=== PATIENT | female | born 2000 | race Caucasian/White ===

== ENCOUNTER 2021-01-20 08:31 | Emergency (ER) | payer BC, SELFPAY ==
[2021-01-20 08:53] VITALS: BP 114/66; PULSE 71; RESP 16; TEMP 36.9; O2SAT 100
--- NOTE | 2021-01-20 09:18 | ED.GENADULT ---
HPI - General Adult General Chief complaint: Ear Stated complaint: nausea/ear pressure/fatigue/head pressure Time Seen by Provider: 01/20/21 09:05 Source: patient and RN notes reviewed Mode of arrival: ambulatory Limitations: no limitations History of Present Illness HPI narrative: Patient presents today with a 2-day history of bilateral ear pressure, nausea, chills and sweats. Denies cough, sore throat, congestion, rhinorrhea, vomiting, diarrhea, or any urinary symptoms. Denies sick contacts. She took 1 dose of Tylenol PM last night, which did provide some relief. States she should be starting her menstrual cycle in the next day. MD complaint: Ear pressure, nausea Related Data Home Medications Medication Instructions Recorded Confirmed norgestimate-ethinyl estradiol 1 tablet PO DAILY 10/07/19 12/19/20 [Sprintec (28)] Allergies Allergy/AdvReac Type Severity Reaction Status Date / Time No Known Allergies Allergy Unknown Verified 01/20/21 08:40 Review of Systems Review of Systems: Narrative: CONSTITUTIONAL: Denies body aches, fever. + Chills, sweats EYES: Denies visual changes, redness, or discharge. ENT: Denies rhinorrhea, congestion, sore throat, or otalgia.+ Bilateral ear pressure CARDIOVASCULAR: Denies chest pain, palpitations, or edema. RESPIRATORY: Denies cough or dyspnea. GASTROINTESTINAL: Denies abdominal pain, vomiting, or diarrhea. + Nausea GENITOURINARY: Denies dysuria or hematuria. SKIN: Denies rash, itching, or wounds. MUSCULOSKELETAL: Denies back pain, joint pain, or myalgia. NEUROLOGIC: Denies headache, numbness, tingling, or weakness. PSYCH: Denies depression or anxiety. [facility] Past Medical History Medical History Anxiety Depression Uterine adhesion (~12/2019) Family History Family History Other Hypertension Social History Social History Smoking status: Never smoker Second hand tobacco smoke exposure: No Comments At time of signature, I have reviewed and agree with nursing past medical, surgical, social and family history unless otherwise noted. Please see nursing chart for further information. There is no relevant family history pertinent to the presenting complaint Exam Narrative: Exam Narrative: GENERAL: Well-appearing, well-nourished, and in no acute distress. HEAD: Normocephalic, atraumatic. EYES: EOMI. No redness or drainage. Conjunctivae normal. ENT: Mucous membranes pink and moist. Nares clear. No rhinorrhea. TMs normal bilaterally. Throat normal. Uvula midline. NECK: Normal AROM. Supple. No lymphadenopathy. CHEST: No respiratory distress. Clear to auscultation. HEART: Regular rate and rhythm. No murmur appreciated. Normal peripheral pulses. EXTREMITIES: Normal range of motion. No edema. SKIN: Warm, dry, no rash. Capillary refill normal. Normal skin turgor. NEURO: No focal deficits. Alert and oriented x3. Gait steady. PSYCH: Normal affect. No signs of depression or anxiety. Course Vital Signs Vital signs: Vital Signs Temperature 98.4 F 01/20/21 08:53 Pulse Rate 71 01/20/21 08:53 Respiratory Rate 16 01/20/21 08:53 Blood Pressure 114/66 01/20/21 08:53 Pulse Oximetry 100 01/20/21 08:53 Temperature 98.4 F 01/20/21 08:53 Pulse Rate 71 01/20/21 08:53 Respiratory Rate 16 01/20/21 08:53 Blood Pressure 114/66 01/20/21 08:53 Pulse Oximetry 100 01/20/21 08:53 Reviewed Medical Decision Making Differential Diagnosis Differential Diagnosis: Viral syndrome, URI, otitis media, otitis externa, ruptured TM, serous otitis, eustachian tube dysfunction, UTI Vital Signs Vital Signs: Vital Signs Temperature 98.4 F 01/20/21 08:53 Pulse Rate 71 01/20/21 08:53 Respiratory Rate 16 01/20/21 08:53 Blood Pressure 114/66 01/20/21 08:53 Pulse Oxim
== END 2021-01-20 09:28 | disposition home or self-care (01) ==
PROVIDERS: Emergency Provider Nurse Practitioner
DX: B34.9 Viral infection, unspecified (principal)
CPT/HCPCS: 81003; 99212; G0463

== ENCOUNTER 2021-03-03 18:38 | Emergency (ER) | payer BC, SELFPAY ==
[2021-03-03 18:44] VITALS: BP 112/60; PULSE 75; RESP 18; TEMP 37.2; O2SAT 100
--- NOTE | 2021-03-03 19:05 | ED.ABDPAIN ---
HPI - Abdominal Pain General Chief Complaint: Abdominal Pain Stated Complaint: lower abd pain Time Seen by Provider: 03/03/21 19:05 Source: patient and RN notes reviewed Mode of arrival: ambulatory Limitations: no limitations History of Present Illness HPI narrative: 20 year old female who presents to [facility] with complaints of having to leave work today at 4 pm when she was doubled over in pain to the left side of her abdomen. Patient states that her pain is sharp to her left abdomen and she also is experiencing some left flank discomfort with tenderness on examination. Patient denies any burning or pain with urination, denies any perineal discomfort or any foul odor of urine, denies any nausea or vomiting diarrhea or any recent constipation. MD elicited complaint: abdominal pain and flank pain Pertinent past history: other (ovarian cyst uterine polyps) Onset (ago): hour(s) (3) Pain Consistency: constant Location: LLQ and L flank Severity: severe Pain scale (0-10): 7 Quality: sharp Radiation: L flank Relieving factors: nothing Associated symptoms: denies other symptoms Related Data Home Medications Medication Instructions Recorded Confirmed norgestimate-ethinyl estradiol 1 tablet PO DAILY 10/07/19 03/03/21 [Sprintec (28)] Allergies Allergy/AdvReac Type Severity Reaction Status Date / Time No Known Allergies Allergy Unknown Verified 03/03/21 21:00 Review of Systems Review of Systems: Narrative: CONSTITUTIONAL: Denies fever, chills, or sweats. EYES: Denies visual changes, redness, or discharge. ENT: Denies rhinorrhea, congestion, sore throat, or otalgia. CARDIOVASCULAR: Denies any chest pain, palpitations, or edema. RESPIRATORY: Denies cough or dyspnea GASTROINTESTINAL:Positive for left lower abdominal pain,no nausea, vomiting, or diarrhea.denies any constipation GENITOURINARY: Denies dysuria or hematuria. SKIN: Denies rash or itching. MUSCULOSKELETAL:Positive for left flank area back pain, no joint pain, or myalgia. NEUROLOGIC: Denies headache, numbness, or weakness.. PSYCHIATRIC: Positive history of anxiety or depression. All systems reviewed & are unremarkable except as noted in HPI and below PMFSH Past Medical History Medical History Anxiety Depression Uterine adhesion (~12/2019) Family History Family History (Updated 03/03/21 @ 19:33 by Eun Rai NP) Mother Kidney stones Hypertension Heart disease Father Hypertension Heart disease Social History Social History (Updated 03/03/21 @ 19:34 by Eun Rai NP) Smoking status: Never smoker Second hand tobacco smoke exposure: No Alcohol intake: current Substance use: current Substance use type: marijuana Last use: 1-2 times per week Gender identity (if verbalized by the patient): Female Comments At time of signature, agree with nursing past medical, surgical, social and family history. There is no relevant family history pertinent to the presenting complaint Exam Narrative: Exam Narrative: GENERAL: Well-appearing, well-nourished, and in no acute distress. HEAD: Normocephalic, atraumatic. EYES: PERRLA and EOMI. ENT: Nares clear, no rhinorrhea or epistaxis. Mucous membranes moist. NECK: Supple.no lymphadenopathy CHEST: Clear to auscultation. No respiratory distress.SAO2 100% on room air HEART: Regular rate and rhythm. No murmur heard. Normal peripheral pulses. ABDOMEN: Soft, tender to left lower abdomen nondistended, normal active bowel sounds.CVA tenderness to left flank area on examination. EXTREMITIES: Normal range of motion. No edema. SKIN: Warm, dry, no rash. NEURO: No focal deficits. Alert and oriented x3. Course Vital Signs Vital signs: Vital Signs Temperature 37.2 C 03/03/21 18:44 Pulse Rate 75 03/03/21 18:44 Respiratory Rate 18 03/03/21 18:44 Blood Pressure 112/60 03/03/21 18:44 Pulse Oximetry 100 03/03/21 18:44 Tem
== END 2021-03-03 19:20 | disposition short-term general hospital (02) ==
PROVIDERS: Emergency Provider Registered Nurse
DX: R10.32 Left lower quadrant pain (principal)
CPT/HCPCS: 81003; 99212; G0463

== ENCOUNTER 2021-03-03 20:13 | Emergency (ER) | payer BC, SELFPAY ==
--- NOTE | ~2021-03-03 | CT_ITS ---
EXAMINATION: CT abdomen pelvis w con DATE: 03/03/2021 22:03 INDICATION: Low abdominal pain. TECHNIQUE: Computed tomography (CT) of the abdomen and pelvis was performed with 100 mL Omnipaque 350 intravenous contrast. Automated exposure control and iterative reconstruction technique were employe d. The dose-length product was 228.96 mGy-cm. COMPARISON: None. FINDINGS: The visualized portions of the lung bases are clear without pneumonia or pleural effusion. The heart size is normal. No pericardial effusion. The liver, gallbladder, spleen, pancreas, adrenal glands, and kidneys are normal. There are no dilated loops of bowel. The appendix is normal. There ar e no pathologically enlarged lymph nodes. There is trace pelvic ascites. The bones are unremarkable. IMPRESSION: 1. No etiology for the patient's symptoms. Reviewed, dictated and finalized at location A.
[2021-03-03 20:20] VITALS: BP 115/67; PULSE 85; RESP 18; TEMP 36.8; O2SAT 100
[2021-03-03 20:34] LABS: Basophils Absolute Auto 0.1 K/mm3 (0.0-0.1); Basophils Percent Auto 0.6 % (0.2-1.2); Eosinophils Absolute Auto 0.1 K/mm3 (0-0.3); Eosinophils Percent Auto 0.9 % (0-4.4); Hematocrit 38.1 % (37.0-47.0); Hemoglobin 12.8 g/dL (12.0-15.0); Immature Granulocyte Absolute 0.04 K/mm3 (0.00-0.031); Immature Granulocyte Percent A 0.4 % (0-0.5); Lymphocytes Absolute Auto 3.92 K/mm3 (0.9-3.2); Lymphocytes Percent Auto 37.3 % (18.3-44.2); Mean Corpuscular HGB Conc 33.6 g/dl (32-36); Mean Corpuscular Hemoglobin 28.9 pg (26-34); Mean Platelet Volume 9.6 fl (7.4-10.4); Monocytes Absolute Auto 0.6 K/mm3 (0.1-0.6); Monocytes Percent Auto 6.1 % (2.6-8.5); Neutrophils Absolute Auto 5.8 K/mm3 (1.3-6.7); Neutrophils Percent Auto 54.7 % (45.5-73.1); Platelet Count Result 324 k/mm3 (150-375); Red Blood Count 4.43 M/mm3 (4.2-5.4); White Blood Count 10.5 K/mm3 (4.5-10.0)
[2021-03-03 20:52] LABS: Add Urine Microscopic? YES; Appearance Urine Cloudy (Clear); Bilirubin Urine Negative (Negative); Blood Urine Negative (Negative); Color Urine Yellow (Yellow); Glucose Urine UA Negative (Negative); Ketones Urine Trace mg/dL (Negative); Leukocyte Esterase Ur 1+ LEU/UL (Negative); Mucus Urine Few /lpf; Nitrate Urine Negative (Negative); Protein Urine 1+ mg/dL (Negative); RBC Urine 0-2 /hpf (0-2); Specific Grav Ur 1.023 (1.001-1.035); Squamous Epithelial Cell Urine Many /hpf (Few); Urobilinogen Urine Negative mg/dL (<2.0)
[2021-03-03 20:57] LABS: Alanine Aminotransferase 13 U/L (4-35); Albumin Level 4.4 g/dL (3.7-5.6); Alkaline Phosphatase 42 U/L (45-116); Anion Gap 8 mmol/L (8-16); Aspartate Amino Transferase 32 U/L (14-36); Bilirubin,Total 0.3 mg/dL (0.2-1.3); Blood Urea Nitrogen 13 mg/dL (8-21); Calcium 9.8 mg/dL (8.9-10.7); Carbon Dioxide 25 mmol/L (22-30); Chloride 107 mmol/L (98-107); Estimated CRCL calculation 120 ml/min; Estimated Glomerular Filt Rate > 60; Glucose 90 mg/dL (65-105); Lipase 45 U/L (23-300); Potassium 3.9 mmol/L (3.4-5.0); Sodium 140 mmol/L (134-143)
--- NOTE | 2021-03-03 21:18 | ED.ABDPAIN ---
HPI - Abdominal Pain General Chief Complaint: Abdominal Pain Stated Complaint: abdominal pain, sent from [facility]. Time Seen by Provider: 03/03/21 20:58 Source: patient Mode of arrival: ambulatory Limitations: no limitations History of Present Illness HPI narrative: This is a 20 year old female that presents to the ER for low abdominal pain since this morning. Reports the pain is sharp and intermittent in nature. Associated with some hematuria. Denies fever, vomiting, or dysuria. Related Data Home Medications Medication Instructions Recorded Confirmed norgestimate-ethinyl estradiol 1 tablet PO DAILY 10/07/19 03/03/21 [Sprintec (28)] Allergies Allergy/AdvReac Type Severity Reaction Status Date / Time No Known Allergies Allergy Unknown Verified 03/03/21 21:00 Review of Systems Review of Systems: Narrative: CONSTITUTIONAL: Denies fever GASTROINTESTINAL: Reports abdominal pain. Denies nausea, vomiting, or diarrhea. GENITOURINARY: Reports hematuria. Denies dysuria All systems reviewed & are unremarkable except as noted in HPI and below PMFSH Past Medical History Medical History Anxiety Depression Uterine adhesion (~12/2019) Family History Family History (Updated 03/03/21 @ 19:33 by Eun Rai NP) Mother Kidney stones Hypertension Heart disease Father Hypertension Heart disease Social History Social History (Updated 03/03/21 @ 19:34 by Eun Rai NP) Smoking status: Never smoker Second hand tobacco smoke exposure: No Alcohol intake: current Substance use: current Substance use type: marijuana Last use: 1-2 times per week Gender identity (if verbalized by the patient): Female Exam Narrative: Exam Narrative: GENERAL: Well-appearing, well-nourished, and in no acute distress. HEAD: Normocephalic, atraumatic. EYES: EOMI. CHEST: Clear to auscultation. No respiratory distress. No wheezes rales or rhonchi HEART: Regular rate and rhythm. No murmur heard. Normal peripheral pulses. ABDOMEN: Soft, nondistended, normal active bowel sounds. Mild tenderness to palpation throughout the lower abdomen, without guarding. No CVA tenderness EXTREMITIES: Normal range of motion. No edema. SKIN: Warm, dry, no rash. NEURO: No focal deficits. Alert and oriented x3. PSYCH: Normal mood and affect Course Vital Signs Vital signs: Vital Signs Temperature 98.2 F 03/03/21 20:20 Pulse Rate 85 03/03/21 20:20 Respiratory Rate 18 03/03/21 20:20 Blood Pressure 115/67 03/03/21 20:20 Pulse Oximetry 100 03/03/21 20:20 Temperature 98.2 F 03/03/21 20:20 Pulse Rate 85 03/03/21 20:20 Respiratory Rate 18 03/03/21 20:20 Blood Pressure 115/67 03/03/21 20:20 Pulse Oximetry 100 03/03/21 20:20 MDM - Abdominal Pain MDM Narrative Medical decision making narrative: Patient presents to the emergency department for lower abdominal discomfort noted today. She is afebrile and nontoxic-appearing. CBC with mild leukocytosis to 10.5. Metabolic panel without concerning findings. Lipase is normal. UA is not overly concerning for infection, likely a contaminated catch with a few white blood cells. Bedside test is negative. CT scan of the abdomen and pelvis is without acute findings. Patient and family updated on case findings. She is instructed to rest and take [id number] pain medication as needed. She is to follow-up with her private tutor. She was given warnings to return to the ER Lab Data Attestation: I reviewed the patient's lab results. Result diagrams: 03/03/21 20:27 03/03/21 20:27 Labs: Lab Results 03/03/21 03/03/21 03/03/21 Range/Units 20:27 20:27 20:35 WBC 10.5 H (4.5-10.0) K/mm3 RBC 4.43 (4.2-5.4) M/mm3 Hgb 12.8 (12.0-15.0) g/dL Hct 38.1 (37.0-47.0) % MCV 86.0 (80-100) fl MCH 28.9 (26-34) pg MCHC 33.6 (32-36) g
--- NOTE | 2021-03-03 21:55 | PC.NURSE ---
Patient taken to CT via stretcher.
[2021-03-04 00:10] VITALS: BP 116/76; PULSE 81; RESP 14; O2SAT 100
== END 2021-03-03 23:36 | disposition home or self-care (01) ==
PROVIDERS: Emergency Medicine; Emergency Provider Emergency Medicine
DX: R10.32 Left lower quadrant pain (principal)
CPT/HCPCS: 36415; 74177; 80053; 81001; 81025; 83690; 85025; 96365; 99284; J0131; Q9967